=== PATIENT | female | born 1980 | race Caucasian/White ===

== ENCOUNTER 2021-04-29 10:55 | Emergency (ER) | payer OTHER, MEDICAID ==
[~2021-04-29] VITALS: Ht 162.6 cm; Wt 54.5 kg
[2021-04-29 11:09] VITALS: TEMP 98.5
[2021-04-29 11:40] LABS: COLLECTION METHOD CLEAN CATCH
[2021-04-29 11:45] LABS: HEMATOCRIT 39.5 % (37.0-47.0); HEMOGLOBIN 13.3 g/dl (12.5-16.0); MEAN CELL VOLUME 93 fl (80.0-100.0); MEAN CORPUSCULAR HEMOGLOBIN 31 pg (27.0-31.0); MEAN CORPUSCULAR HGB CONC 34 g/dl (33.0-37.0); MEAN PLATELET VOLUME 11.7 fl (7.4-10.4); PLATELET COUNT 107 K/mm3 (130-400); RED BLOOD COUNT 4.25 M/mm3 (4.10-5.30); REDCELL DISTRIBUTION WIDTH-CV 12.5 % (11.5-14.5)
[2021-04-29 11:50] LABS: AMORPHOUS CRYSTAL Present /uL; MUCOUS Present /lpf; PH 5 (5-8); URINE APPEARANCE Cloudy; URINE BACTERIA Occasional /hpf; URINE BILIRUBIN Negative (NEGATIVE); URINE BLOOD 2+ (NEGATIVE); URINE COLOR Yellow; URINE GLUCOSE Negative (NEGATIVE); URINE KETONE Trace (NEGATIVE); URINE LEUKOCYTE ESTERASE 2+ (NEGATIVE); URINE NITRATE Negative (NEGATIVE); URINE PROTEIN(semi-quant) 1+ (NEGATIVE); URINE RBC 20-50 /hpf; URINE UROBILINOGEN Negative (NEGATIVE)
[2021-04-29 11:54] LABS: ALBUMIN 3.6 gm/dL (3.5-5.0); BILIRUBIN,TOTAL 0.3 mg/dL (0.0-1.0); CALCIUM 8.2 mg/dL (8.4-10.2); CREATININE, serum 0.62 (0.52-1.25); POTASSIUM 3.5 mmol/L (3.4-5.0); TOTAL PROTEIN 6.8 gm/dL (6.4-8.2)
[2021-04-29 12:43] LABS: EOSINOPHIL 1 % (0-4); LYMPHOCYTE 35 % (20.0-51.0); NEUTROPHILS 54 % (42.0-75.2); PLATELET ESTIMATE DECREASED (NORMAL)
[2021-04-29] MEDS ORDERED: ZOFRAN ODT4 MG PO (13:15)
[2021-04-29] MEDS ORDERED: CEPHALEXIN500 M1 PO ×2 (13:15)
[2021-04-29] MEDS ORDERED: PERCOCET 325 MG1 TA2 PO (13:15)
[2021-04-29 13:31] VITALS: BP 122/81; PULSE 78
[2021-05-01] MEDS ORDERED: CIPRO 500MG TA500 MG PO (17:01)
== END 2021-04-29 13:31 | disposition home or self-care (01) ==
LOC: COL.ER 10:55
PROVIDERS: Personal Emergency Response Attendant
DX: N12 Tubulo-interstitial nephritis, not specified as acute or chronic (principal); Z32.02 Encounter for pregnancy test, result negative
CPT/HCPCS: J0696; J2270; J7030

== ENCOUNTER 2021-05-30 15:34 | Emergency (ER) | payer OTHER, MEDICAID ==
[~2021-05-30] VITALS: Ht 162.6 cm; Wt 56.8 kg
[~2021-05-30 15:34] MED LIST: CEPHALEXIN500 M1 PO; CIPRO 500MG TA500 MG PO; PERCOCET 325 MG1 TA2 PO; ZOFRAN ODT4 MG PO
[2021-05-30 15:54] LABS: COLLECTION METHOD CLEAN CATCH
[2021-05-30 16:12] LABS: MUCOUS Present /lpf; PH 5 (5-8); URINE APPEARANCE Hazy; URINE BACTERIA None Seen /hpf; URINE BILIRUBIN Negative (NEGATIVE); URINE BLOOD Negative (NEGATIVE); URINE COLOR Red; URINE GLUCOSE Negative (NEGATIVE); URINE KETONE Negative (NEGATIVE); URINE LEUKOCYTE ESTERASE Negative (NEGATIVE); URINE NITRATE Positive (NEGATIVE); URINE PROTEIN(semi-quant) 2+ (NEGATIVE); URINE RBC 20-50 /hpf; URINE UROBILINOGEN >=4.0 mg/dL (NEGATIVE)
[2021-05-30] MEDS ORDERED: CIPRO 500MG TA500 MG PO (16:31)
[2021-05-30 18:45] VITALS: BP 113/78; PULSE 84; TEMP 98.7
== END 2021-05-30 18:45 | disposition home or self-care (01) ==
LOC: COL.ER 15:34
PROVIDERS: Student in an Organized Health Care Education/Training Program
DX: N12 Tubulo-interstitial nephritis, not specified as acute or chronic (principal)
CPT/HCPCS: J0744; J1885; J7030

== ENCOUNTER 2021-07-10 11:11 | Emergency (ER) | payer OTHER ==
[~2021-07-10] VITALS: Ht 165.1 cm; Wt 56.8 kg
[2021-07-10 12:00] VITALS: TEMP 98.6
[2021-07-10 12:35] LABS: COLLECTION METHOD CLEAN CATCH
[2021-07-10 12:49] LABS: MUCOUS Present /lpf; PH 5 (5-8); URINE APPEARANCE Cloudy; URINE BACTERIA None Seen /hpf; URINE BILIRUBIN Negative (NEGATIVE); URINE BLOOD Negative (NEGATIVE); URINE COLOR Yellow; URINE GLUCOSE Negative (NEGATIVE); URINE KETONE Negative (NEGATIVE); URINE LEUKOCYTE ESTERASE 3+ (NEGATIVE); URINE NITRATE Negative (NEGATIVE); URINE PROTEIN(semi-quant) Negative (NEGATIVE); URINE RBC None Seen /hpf; URINE UROBILINOGEN Negative (NEGATIVE)
[2021-07-10] MEDS ORDERED: MACROBID 1100 MG/CAP PO (13:20)
[2021-07-10 13:38] VITALS: BP 115/80; PULSE 80
== END 2021-07-10 13:40 | disposition home or self-care (01) ==
LOC: COL.ER 11:11
PROVIDERS: Family Medicine
DX: O23.41 Unspecified infection of urinary tract in pregnancy, first trimester (principal); Z3A.01 Less than 8 weeks gestation of pregnancy

== ENCOUNTER 2021-08-23 08:16 | Emergency (ER) | payer OTHER, MEDICAID ==
[~2021-08-23] VITALS: Ht 162.6 cm; Wt 56.4 kg
[~2021-08-23 08:16] MED LIST changes: +MACROBID 1100 MG/CAP PO
[2021-08-23 08:32] VITALS: TEMP 97.8
[2021-08-23 09:12] LABS: BASO % 0.2 % (0.0-2.0); EOS # 0.2 K/mm3 (0.0-0.7); EOS % 1.6 % (0-4.0); GRAN # 7.7 K/mm3 (1.4-6.5); GRAN % 76.3 % (42.2-75.2); HEMOGLOBIN 12.6 g/dl (12.5-16.0); LYMPH # 1.7 K/mm3 (1.2-3.4); LYMPH % 17.1 % (20.0-51.0); MEAN CELL VOLUME 90 fl (80.0-100.0); MEAN CORPUSCULAR HEMOGLOBIN 31 pg (27.0-31.0); MEAN CORPUSCULAR HGB CONC 34 g/dl (33.0-37.0); MEAN PLATELET VOLUME 10.9 fl (7.4-10.4); MONO # 0.4 K/mm3 (0.1-0.6); MONO % 4.3 % (1.7-9.3); PLATELET COUNT 201 K/mm3 (130-400); RED BLOOD COUNT 4.11 M/mm3 (4.10-5.30); REDCELL DISTRIBUTION WIDTH-CV 12.7 % (11.5-14.5)
[2021-08-23 09:13] LABS: HEMATOCRIT 36.8 % (37.0-47.0)
[2021-08-23 09:15] VITALS: BP 134/90; PULSE 74
[2021-08-23 09:28] LABS: ALBUMIN 3.6 gm/dL (3.5-5.0); BILIRUBIN,TOTAL 0.3 mg/dL (0.2-1.2); CALCIUM 8.3 mg/dL (8.4-10.2); CREATININE, serum 0.7 mg/dL (0.57-1.11); POTASSIUM 3.2 mmol/L (3.5-4.5); TOTAL PROTEIN 6.4 gm/dL (6.2-8.1)
[2021-08-23] MEDS ORDERED: MOTRIN 800800 MG/TAB PO (11:42)
== END 2021-08-23 11:55 | disposition home or self-care (01) ==
LOC: COL.ER 08:16
PROVIDERS: Personal Emergency Response Attendant
DX: R10.2 Pelvic and perineal pain (principal); N93.9 Abnormal uterine and vaginal bleeding, unspecified; Z87.59 Personal history of other complications of pregnancy, childbirth and the puerperium
CPT/HCPCS: J2270; J2405; J7030

== ENCOUNTER 2022-12-28 11:02 | Emergency (ER) | payer OTHER ==
[~2022-12-28] VITALS: Ht 162.6 cm; Wt 63.6 kg
[~2022-12-28 11:02] MED LIST changes: +MOTRIN 800800 MG/TAB PO
[2022-12-28 11:26] VITALS: BP 133/83; TEMP 99
[2022-12-28 11:39] LABS: COLLECTION METHOD CLEAN CATCH
[2022-12-28 11:48] LABS: MUCOUS Present (NOT PRESENT); URINE BACTERIA Rare /hpf (NONE SEEN); URINE RBC 0-2 /hpf (0-2)
[2022-12-28 11:49] LABS: URINE COLOR Yellow (YELLOW)
[2022-12-28 11:50] LABS: PH 6.5 (5.0-8.5); URINE APPEARANCE Clear (CLEAR/HAZY); URINE BLOOD Negative (NEGATIVE); URINE GLUCOSE Negative (NEGATIVE); URINE KETONE Negative (NEGATIVE); URINE NITRATE Negative (NEGATIVE); URINE PROTEIN(semi-quant) Negative (NEGATIVE); URINE UROBILINOGEN 0.2 E.U/dL (0.2-1.0)
[2022-12-28 12:33] VITALS: PULSE 70
== END 2022-12-28 12:33 | disposition home or self-care (01) ==
LOC: COL.ER 11:02
PROVIDERS: Physician Assistant
DX: M54.9 Dorsalgia, unspecified (principal); Z87.448 Personal history of other diseases of urinary system
CPT/HCPCS: J1885; J2360

== ENCOUNTER 2023-11-05 11:50 | Outpatient (CLI) | payer MEDICAID ==
[~2023-11-05] VITALS: Ht 165.1 cm; Wt 74.1 kg
[2023-11-05 11:42] VITALS: TEMP 98
[~2023-11-05 11:50] MED LIST changes: +PROMETHAZINE12.5 M5 PO
--- NOTE | 2023-11-05 12:00 | NUR ---
Pt arrived on unit ambulatory and with concerns for leaking fluid for the last couple days and increased amount this morning. Pt reports no large gush of fluid just an increase amount of discharge, denies any vaginal bleeding and reports normal movement. EFM and toco monitors started. Vitals signs WNL. ROM+ collected per Dr. Fabian's orders. Plan of care for labor assessment reviewed with pt and at the bedside.
[2023-11-05] MEDS ORDERED: ASPIRIN 81M81 MG/TA2 PO (12:10)
[2023-11-05] MEDS ORDERED: PRENATAL (12:10)
[2023-11-05] MEDS ORDERED: LR 1,000 ML IV PRN (12:15)
[2023-11-05 12:51] VITALS: BP 121/70; PULSE 93
--- NOTE | 2023-11-05 13:00 | NUR ---
Discharge instructions and follow up care reviewed with pt and at the bedside. Both verbalized an understanding, agreed with plan and states no questions or concerns.
== END 2023-11-05 13:05 | disposition home or self-care (01) ==
LOC: LDRO 11:50 → EDSTATUS 11:51 → LDRO 13:05
DX: Z34.92 Encounter for supervision of normal pregnancy, unspecified, second trimester (principal); Z3A.23 23 weeks gestation of pregnancy

== ENCOUNTER 2024-01-02 16:45 | Outpatient (CLI) | payer MEDICAID ==
[~2024-01-02] VITALS: Ht 165.1 cm; Wt 80.0 kg
[~2024-01-02 16:45] MED LIST changes: +ASPIRIN 81M81 MG/TA2 PO; +PRENATAL
--- NOTE | 2024-01-02 16:55 | NUR ---
PT AMBULATORY TO UNIT WITH SPOUSE. REPORTS CTX Q2-8 MINUTES APART. TOLERATES WELL. NO LOF, POSITIVE MOVEMENT. SVE PER CARLOS MANUEL HUA CL/TH/HIGH. CTX ON TOCO 2-5 MINUTES APART. WILL CONTINUE WITH POC.
[2024-01-02] MEDS ORDERED: VITAMIN B-625 MG (17:27)
[2024-01-02] MEDS ORDERED: LEXAPRO 10MG10 MG PO (17:27)
[2024-01-02] MEDS ORDERED: LR 1,000 ML IV SCH (17:45)
[2024-01-02 18:00] VITALS: BP 112/74; PULSE 92; TEMP 98.1
--- NOTE | 2024-01-02 18:15 | NUR ---
DR. CASTELLANO AT BEDSIDE TO DISCUSS BETAMETHASONE. PT AGREES.
[2024-01-02 18:25] LABS: COLLECTION METHOD CLEAN CATCH
[2024-01-02] MEDS ORDERED: Betamethasone Acetate/Na Phos 6 MG/ML 5 ML MDV IM SCH (18:30)
[2024-01-02 18:48] LABS: URINE APPEARANCE CLEAR (CLEAR/HAZY); URINE BLOOD NEGATIVE (NEGATIVE); URINE COLOR YELLOW (YELLOW); URINE GLUCOSE NEGATIVE (NEGATIVE); URINE KETONE NEGATIVE (NEGATIVE); URINE NITRATE NEGATIVE (NEGATIVE); URINE PROTEIN(semi-quant) NEGATIVE (NEGATIVE); URINE UROBILINOGEN 0.2 E.U/dL (0.2-1.0)
[2024-01-02 18:50] LABS: TRICYCLIC ANTIDEPRESS URINE NEGATIVE (NEGATIVE)
[2024-01-02 18:51] VITALS: BP 107/64; PULSE 79
--- NOTE | 2024-01-02 18:51 | NUR ---
185- IRREGULAR CTX FOLLOWING COMPLETION OF 1L OF LR INFUSED. BETAMETHASONE GIVEN, SEE EMAR. LAB RESULTS REVIEWED WITH DR. CASTELLANO. PT MAY DC HOME AT THIS TIME. MONITORING DCd. PT TO CHANGE INTO OWN CLOTHES WHILE PAPERWORK PREPARED. 1909- PT INSTRUCTED TO RETURN TO UNIT TOMORROW AT 1845 FOR 2ND DOSE OF BETAMETHASONE. PT ENCOURAGED TO KEEP ALL SCHEDULED APPOINTMENTS, DRINK PLENTY OF WATER, AND TO RETURN TO UNIT IF HER WATER BREAKS, SHE HAS VAGINAL BLEEDING, CONSISTENT CONTRACTIONS, OR DECREASED MOVEMENT. UNDERSTANDING VERBALIZED. PT OFF UNIT AMBULATORY WITH FOB.
[2024-01-04] MEDS ORDERED: PROMETHAZINE12.5 M5 PO (15:35)
[2024-01-04] MEDS ORDERED: BENADRYL50 MG PO (15:36)
== END 2024-01-02 19:10 | disposition home or self-care (01) ==
LOC: LDRO 16:45
PROVIDERS: Student in an Organized Health Care Education/Training Program
DX: Z34.93 Encounter for supervision of normal pregnancy, unspecified, third trimester (principal); Z3A.31 31 weeks gestation of pregnancy
CPT/HCPCS: J0702; J7120

== ENCOUNTER 2024-01-25 13:07 | Outpatient (CLI) | payer MEDICAID ==
[~2024-01-25] VITALS: Ht 165.1 cm; Wt 75.5 kg
[~2024-01-25 13:07] MED LIST changes: +BENADRYL50 MG PO; +LEXAPRO 10MG10 MG PO; +VITAMIN B-625 MG
--- NOTE | 2024-01-25 13:10 | NUR ---
PT AMBULATORY TO UNIT WITH PARTNER/FATHER OF BABY, ORIENTED TO ROOM AND CHANGED INTO HOSPTIAL GOWN. THIS RN AT PT BEDSIDE EXPLAINING PT PLAN OF CARE FOR NONSTRESS TEST, EFM ON BOTH BABYS AND TOCO ATTACHED, PT POSITIONED SEMIFOWLERS IN BED. PT DENIES FEELING ANY CONTRACTIONS, REPORTS FEELING POSITIVE MOVEMENT IN BOTH BABY A AND B, DENIES ANY LOF, DENIES VAGINAL BLEEDING OR SPOTTING. PT VS STABLE, PT AWAKE AND ORIENTED X3, EFM CAT 1. PT PARTNER SUPPORTIVE AT BEDSIDE.
[2024-01-25 13:30] VITALS: TEMP 98.2
[2024-01-25 14:15] VITALS: BP 111/82; PULSE 106; TEMP 98.2
[2024-01-25 15:15] VITALS: BP 113/66; PULSE 86
[2024-01-25 16:15] VITALS: BP 103/57; PULSE 85; TEMP 98.3
--- NOTE | 2024-01-25 16:35 | NUR ---
DISCHARGE ORDER ACKNOWLEDGED FOR PT, AT PT BEDSIDE DISCUSSING REACTIVE NONSTRESS TEST RESULTS. PT AGREEABLE AND UNDERSTANDING. PT CHANGED FROM HOSPITAL GOWN AND SIGNED DISCHARGE PAPERWORK, DISCAHRGE SUMMARY HANDED TO PT. PT AMBULATORY FROM UNIT WITH PARTNER.
[2024-01-30] MEDS ORDERED: TUMS500 MG (11:57)
[2024-01-30] MEDS ORDERED: TYLENOL 325MG325 MG PO (11:58)
== END 2024-01-25 16:35 | disposition home or self-care (01) ==
LOC: LDRO 13:07
DX: Z34.83 Encounter for supervision of other normal pregnancy, third trimester (principal); Z3A.35 35 weeks gestation of pregnancy